=== PATIENT | male | born 2000 | race African-American/Black ===

== ENCOUNTER 2024-05-19 17:23 | Emergency (ER) | payer SELFPAY ==
[~2024-05-19] VITALS: Ht 182.9 cm; Wt 70.0 kg
[2024-05-19] MEDS ORDERED: NAPROXEN 250 MG/TAB PO ONE (17:50)
[2024-05-19] MEDS ORDERED: METHOCARBAMOL 500 MG/TAB PO ONE (17:50)
[2024-05-19] MEDS ORDERED: METHOCARBAMOL500 MG PO (18:58)
[2024-05-19] MEDS ORDERED: NAPROXEN500 MG PO (18:58)
[2024-05-19 19:11] VITALS: BP 109/78
[2024-05-19 19:16] VITALS: BP 109/78
== END 2024-05-19 19:16 | disposition home or self-care (01) | DRG 563 ==
LOC: ED 17:23
DX: S39.012A Strain of muscle, fascia and tendon of lower back, initial encounter (principal); X58.XXXA Exposure to other specified factors, initial encounter